=== PATIENT | male | born 1990 | race Caucasian/White ===

== ENCOUNTER 2019-01-21 19:08 | Emergency (ER) | payer SELFPAY ==
[~2019-01-21] VITALS: Ht 180.3 cm; Wt 72.6 kg
[2019-01-21 19:25] VITALS: BP 123/72
--- NOTE | 2019-01-21 19:28 | NUR ---
TO LOBBY A/W BED AMBULATORY
--- NOTE | 2019-01-21 20:33 | NUR ---
Patient ambulated to bed 3. RN evaluating patient at bedside.
--- NOTE | 2019-01-21 20:40 | NUR ---
PT CAME IN C/O CELLULITIS TO RIGHT BUTTOCKS X 1 WEEK. AREA IS RED AND SWOLLEN. PAIN LEVEL 7/10,THROBBING. NO MED HX. SAFETY MEASURES IN PLACE. WAITING FOR ERMD TO EVALUATE PT.
[2019-01-21] MEDS ORDERED: LIDOCAINE 1% 500 MG/50 ML VIAL INJ SCH (20:45)
[2019-01-21] MEDS ORDERED: LIDOCAINE MPF 1% - 5 mL VIAL 10 ML ONE (21:14)
--- NOTE | 2019-01-21 21:35 | NUR ---
COVER DRESSING APPLIED TO PT WOUND AND SEALED IN PLACE
[2019-01-21] MEDS ORDERED: IBUPROFEN 400 MG TAB PO ONE (21:40)
[2019-01-21 21:47] VITALS: BP 123/72
--- NOTE | 2019-01-21 21:47 | NUR ---
Patient discharged with v/s stable. Written and verbal after care instructions given and explained. Patient alert, oriented and verbalized understanding of instructions. Ambulatory with steady gait. All questions addressed prior to discharge. ID band removed. Patient advised to follow up with PMD. Rx of KEFLEX, AND IBUPROFEN WERE given. Patient educated on indication of medication including possible reaction and side effects. Opportunity to ask questions provided and answered.
== END 2019-01-21 21:47 | disposition home or self-care (01) ==
LOC: MED 19:08
DX: L02.415 Cutaneous abscess of right lower limb (principal); F17.210 Nicotine dependence, cigarettes, uncomplicated; F12.10 Cannabis abuse, uncomplicated
CPT/HCPCS: 10060; 99283; J2001